=== PATIENT | female | born 1985 | race Caucasian/White ===

== ENCOUNTER 2016-08-16 11:20 | Inpatient (IN) | payer MEDICAID ==
[~2016-08-16] VITALS: Ht 157.5 cm; Wt 59.0 kg
--- NOTE | 2016-08-16 14:25 | NUR ---
RECEIVED TO ROOM 2205 AT THIS TIME FROM THE DOCTOR'S OFFICE VIA WHEELCHAIR. PT ALERT AND ORIENTED AND AMBULATES WITHOUT ASSISTANCE. MOTHER AT BEDSIDE. IV TO RIGHT AC PATENT AND SITED BY IMAGING. ASSESSMENT AND HISTORY OBTAINED. ORIENTED TO ROOM. CALL LIGHT IN REACH, WILL CONTINUE WITH PLAN OF CARE.
[2016-08-16] MEDS ORDERED: TRINESSA1 TAB PO (14:34)
[2016-08-16 14:36] VITALS: BP 122/101
--- NOTE | 2016-08-16 14:58 | NUR ---
PRN MORPHINE AND ZOFRAN ADMINISTERED PER ORDER FOR NAUSEA AND PAIN /10.
[2016-08-16 15:26] LABS: BASOPHILS 0.3 % (0.0-2.0); EOSINOPHILS 0.2 % (0-7); HEMATOCRIT 35.5 % (36.0-48.0); HEMOGLOBIN 11.2 g/dL (12-16); IMMATURE GRANULOCYTES 0.5 % (0-5); LYMPHOCYTES 13.7 % (15-50); MCHC 31.5 g/dL (31.0-37.0); MCV 76.2 fL (80.0-100.0); MEAN PLATELET VOLUME 8.1 fL (7.4-10.4); MONOCYTES 16.4 % (2-11); NEUTROPHILS 68.9 % (40-80); PLATELET COUNT 392 10x3/uL (130-400); RBC 4.66 10x6/uL (4.00-5.40); RDW 15.2 % (11.5-14.5); WBC 10.9 10x3/uL (4.8-10.8)
[2016-08-16 15:57] LABS: ALKALINE PHOSPHATASE 95 U/L (46-116); ALT (SGPT) 13 U/L (10-68); BILIRUBIN - TOTAL 0.52 mg/dL (0.2-1.3); CALC OSMOLALITY 271 mosm/kg (275-300); CALCIUM 8.6 mg/dL (8.5-10.1); CARBON DIOXIDE 24.8 mmol/L (21.0-32.0); CHLORIDE - SERUM 98 mmol/L (98-107); CREATININE - SERUM 0.7 mg/dL (0.6-1.3); GLUCOSE 113 mg/dL (74-106); MAGNESIUM - SERUM 1.6 mg/dL (1.8-2.4); PHOSPHOROUS 3.4 mg/dL (2.5-4.9); POTASSIUM - SERUM 3.3 mmol/L (3.5-5.1); PROTEIN - SERUM 6.5 g/dL (6.4-8.2); SODIUM 137 mmol/L (136-145); UREA NITROGEN 5 mg/dL (7-18); eGFR NON AFRICAN AMERICAN > 90 mL/min (90-120)
--- NOTE | 2016-08-16 17:06 | NUR ---
SCHEDULED ANTIBIOTIC STARTED AT THIS TIME. INITIATED ELECTROLYTE PROTOCOL FOR MAGNESIUM OF 1.6. PAIN LEVEL 3/10 DENIES NAUSEA AT THIS TIME. CALL LIGHT IN REACH, WILL CONTINUE WITH PLAN OF CARE.
[2016-08-16 17:27] VITALS: BP 122/101; BMI 23.8
--- NOTE | 2016-08-16 17:54 | NUR ---
DCP: Discharge Planning Patient Name: CAT BROWN Admission Status: Elective Accout number: [id number] Admission Date: 08-16-2016 : 1985 Admission Diagnosis: Attending: LEE Current LOS: 1 Anticipated DC Date: Planned Disposition: Home or Self Care Primary [place]: [place] [employer] Discharge Planning Comments: CM met with patient to discuss discharge planning/needs. The patient resides at home with her spouse and children. They live in a single story home with 5 steps leading to the front door. She states her home is safe to return to. Her primary caregiver will be her spouse "Nick" ([phone]). He will also be her transportation home. She denies the need for HH/DME at this time. CM will continue to follow and assist with discharge planning as needed. Six Sigma Black Trainer: Naye Asher
--- NOTE | 2016-08-16 18:35 | NUR ---
TEMPERATURE 102.[address] WEATHERS ON THE FLOOR. INFORMED HER OF FEVER. STATED SHE WOULD WRITE FOR TYLENOL.
[2016-08-16 19:01] LABS: HCG SERUM NEGATIVE (NEGATIVE)
[2016-08-16 21:00] VITALS: BP 124/62
[2016-08-17 01:00] VITALS: BP 109/60
[2016-08-17 05:00] VITALS: BP 119/75
[2016-08-17 05:29] LABS: BASOPHILS 0.1 % (0.0-2.0); EOSINOPHILS 0.1 % (0-7); HEMATOCRIT 34.5 % (36.0-48.0); HEMOGLOBIN 10.9 g/dL (12-16); IMMATURE GRANULOCYTES 0.5 % (0-5); LYMPHOCYTES 12.2 % (15-50); MCH 24.1 pg (26.0-34.0); MCHC 31.6 g/dL (31.0-37.0); MCV 76.2 fL (80.0-100.0); MEAN PLATELET VOLUME 8.4 fL (7.4-10.4); MONOCYTES 19.9 % (2-11); NEUTROPHILS 67.2 % (40-80); PLATELET COUNT 435 10x3/uL (130-400); RBC 4.53 10x6/uL (4.00-5.40); RDW 15.3 % (11.5-14.5); WBC 8.8 10x3/uL (4.8-10.8)
[2016-08-17 05:51] LABS: ALBUMIN 2.6 g/dL (3.4-5.0); ALKALINE PHOSPHATASE 79 U/L (46-116); ALT (SGPT) 11 U/L (10-68); BILIRUBIN - TOTAL 0.55 mg/dL (0.2-1.3); CALC OSMOLALITY 268 mosm/kg (275-300); CALCIUM 8.1 mg/dL (8.5-10.1); CHLORIDE - SERUM 99 mmol/L (98-107); CREATININE - SERUM 0.7 mg/dL (0.6-1.3); GLUCOSE 138 mg/dL (74-106); POTASSIUM - SERUM 3.5 mmol/L (3.5-5.1); PROTEIN - SERUM 6.6 g/dL (6.4-8.2); SODIUM 135 mmol/L (136-145); UREA NITROGEN 4 mg/dL (7-18); eGFR NON AFRICAN AMERICAN > 90 mL/min (90-120)
[2016-08-17 06:01] LABS: LIPASE 44 U/L (73-393); PHOSPHOROUS 2.3 mg/dL (2.5-4.9)
[2016-08-17 06:29] LABS: ERYTHROCYTE SEDIMENTATION RATE 32 mm/hr (0-20)
--- NOTE | 2016-08-17 07:00 | NUR ---
PT REC'D FROM [facility]. RESTING IN BED COMPLAINING OF 9/10 R ARM PAIN. PT STATES, "IT JUST CAME ON ALL OF A SUDDEN." K RUNNING AT THIS TIME. BAG EMPTY SO INFUSION STOPPED. STATED I WOULD ADMINISTERED PRN PAIN MEDICATION AND PRN NAUSEA MED. BED LOW, CALL LIGHT IN REACH, WILL REASSESS.
--- NOTE | 2016-08-17 08:05 | NUR ---
PRN MORPHINE ADMINISTERED PER PT COMPLAINTS OF BURNING/SHARP R ARM PAIN. PRN ZOFRAN ADMINISTERED PER COMPLAINTS OF NAUSEA WELL. AFTER PUSH PT STATED SHE WAS ALREADY FEELING A LITTLE BETTER. WILL REASSESS.
[2016-08-17 08:19] VITALS: BP 125/78
--- NOTE | 2016-08-17 10:00 | NUR ---
PATIENT IN BED WITH IV INTACT. NO COMPLAINTS AT THIS TIME. CALL LIGHT WITHIN REACH.
[2016-08-17 12:23] VITALS: BP 116/75
--- NOTE | 2016-08-17 12:42 | NUR ---
PRN MORPHINE GIVEN PER PT COMPLAINTS OF 9/10 ABD PAIN. EXPLAINED TO PT THAT COLONOSCOPY IS SCHEDULED FOR 0900 08/18/16 AND THAT WE WOULD SIGN AND GO OVER THE CONSENTS LATER. PT STATES SHE UNDERSTANDS AND HAS NO QUESTIONS AT THIS TIME.
[2016-08-17 13:10] VITALS: Ht 157.5 cm; Wt 59.0 kg
--- NOTE | 2016-08-17 14:39 | NUR ---
CONSENTS FOR COLONOSCOPY SIGNED AT THIS TIME. NO QUESTIONS OR CONCERNS VOICED AT THIS TIME. GOLYTLE STARTED. EXPLAINED TO PT MUCH POSSIBLE. IF UNABLE TO OR CAN'T KEEP IT DOWN TO JUST LET ME KNOW, BUT TO CONTINUE TO TRY TO DRINK IT IF ABLE. NO QUESTIONS OR CONCERNS VOICED AT THIS TIME. BED LOW, CALL LIGHT IN REACH, DENIES NEEDS.
[2016-08-17 15:41] VITALS: BP 118/79
--- NOTE | 2016-08-17 19:00 | NUR ---
PATIENT IN BED WATCHING TV. HOB 30 DEGREES. AAOX4. RR EVEN AND UNLABORED. 0 S/S OF DISTRESS. STATES PAIN IS A 4/10. IV TO RIGHT AC PATENT WITH NO REDNESS OR SWELLING. PATIENT STATES SHE CANNOT DRINK GO LYTELY BECAUSE IT IS MAKING HER SICK. WILL NOTIFY
--- NOTE | 2016-08-17 20:30 | NUR ---
SPOKE WITH DR. WEATHERS. GAVE PATIENT 2 DULCOLAX AND MAG CITRATE PER TELEPHONE ORDER. ZOFRAN GIVEN FOR NAUSEA AND MORPHINE GIVEN FOR PAIN. WILL REASSESS.
[2016-08-17 21:00] VITALS: BP 124/68
[2016-08-18] VITALS (9 sets, daily range): BP systolic 106–124; BP diastolic 57–81
--- NOTE | 2016-08-18 01:35 | NUR ---
PATIENT SLEEPING WITH NO DISTRESS NOTED. WAS ABLE TO DRINK ABOUT 150ML OF MAG CITRATE.
[2016-08-18 05:10] LABS: BASOPHILS 0.1 % (0.0-2.0); EOSINOPHILS 0.8 % (0-7); HEMATOCRIT 33.2 % (36.0-48.0); HEMOGLOBIN 10.2 g/dL (12-16); IMMATURE GRANULOCYTES 0.7 % (0-5); LYMPHOCYTES 18.4 % (15-50); MCH 23.4 pg (26.0-34.0); MCHC 30.7 g/dL (31.0-37.0); MCV 76.1 fL (80.0-100.0); MEAN PLATELET VOLUME 8.3 fL (7.4-10.4); MONOCYTES 16.3 % (2-11); NEUTROPHILS 63.7 % (40-80); PLATELET COUNT 431 10x3/uL (130-400); RBC 4.36 10x6/uL (4.00-5.40); RDW 15.1 % (11.5-14.5); WBC 8.8 10x3/uL (4.8-10.8)
[2016-08-18 05:57] LABS: ALBUMIN 2.3 g/dL (3.4-5.0); ALKALINE PHOSPHATASE 66 U/L (46-116); ALT (SGPT) 10 U/L (10-68); BILIRUBIN - TOTAL 0.37 mg/dL (0.2-1.3); CALC OSMOLALITY 272 mosm/kg (275-300); CALCIUM 7.5 mg/dL (8.5-10.1); CARBON DIOXIDE 27.6 mmol/L (21.0-32.0); CHLORIDE - SERUM 101 mmol/L (98-107); CREATININE - SERUM 0.6 mg/dL (0.6-1.3); GLUCOSE 126 mg/dL (74-106); MAGNESIUM - SERUM 2.1 mg/dL (1.8-2.4); PHOSPHOROUS 1.8 mg/dL (2.5-4.9); POTASSIUM - SERUM 3.2 mmol/L (3.5-5.1); PROTEIN - SERUM 6.1 g/dL (6.4-8.2); SODIUM 137 mmol/L (136-145); UREA NITROGEN 4 mg/dL (7-18); eGFR NON AFRICAN AMERICAN > 90 mL/min (90-120)
--- NOTE | 2016-08-18 07:00 | NUR ---
PT REC'D FROM [facility]. RESTING IN BED WITH EYES CLOSED. RESP EVEN AND UNLABORED. NO SIGNS OF DISTRESS. BED LOW, CALL LIGHT IN REACH, WILL CPOC.
--- NOTE | 2016-08-18 07:20 | NUR ---
PATIENT IN BED WITH EYES CLOSED. NO COMPLAINTS OR SIGNS OF DISTRESS. IV INTACT. CALL LIGHT WITHIN REACH.
--- NOTE | 2016-08-18 08:28 | NUR ---
MORNING MEDS PASSED AT THIS TIME. ASKED PT IF SHE WAS READY TO DO THE ENEMAS. PT STARTED CRYING AND VERBALIZED SHE WAS UPSET AND DIDN'T WANT TO, BUT WANTED TO KNOW WHAT IT WAS FOR ULTIMATELY. EXPLAINED TO PT THAT IT WAS TO HELP CLEAN OUT HER BOWELS SO THAT THE DOCTOR COULD HAVE A BETTER VEIW AND DON'T MISS ANYTHING. TOLD PT I WOULD GIVE HER A MINUTE TO DECIDE.
--- NOTE | 2016-08-18 09:24 | NUR ---
WARM TAP WATER ENEMA INSTILLED. 800CC'S INSTILLED. PT VOIDED LARGE AMOUNT OF YELLOW/GREEN STOOL. ASSISTED BACK TO BED. BED LOW, CALL LIGHT IN REACH, AWAITING CALL TO PREOP.
--- NOTE | 2016-08-18 12:33 | NUR ---
PT PREOP'D AND READY FOR COLONOSCOPY.
--- NOTE | 2016-08-18 19:25 | NUR ---
RECIEVED SHIFT REPORT. PT IS LYING IN BED. ALERT AND ORIENTED AND ABLE TO VERBALIZE NEEDS. IV IS PATENT AND FLUIDS ARE RUNNING PER ORDER. PT IS AMBULATORY BUT WAS INSTRUCTED TO CALL FOR ANY ASSISTANCE NEEDED. PT STATES PAIN IS 6/10. NO NEEDS ARE VERBALIZED AT THIS TIME. WILL CONTINUE TO MONITOR. SIDE RAILS ARE UP X 2. BED IS IN LOWEST POSITION. CALL LIGHT IS WITHIN REACH.
--- NOTE | 2016-08-18 20:46 | OP ---
PATIENT NAME: CAT MCKEON MEDICAL RECORD: [id number] :87 LOCATION:D[id number] ADMISSION DATE:08/16/16 SURGEON: HARIS WEATHERS MD DATE OF OPERATION: 08/18/2016 PROCEDURE: Colonoscopy with ileoscopy and biopsy. ATTENDING PHYSICIAN: Tori Bustillo MD. INDICATIONS: Ms. Mckeon is a very pleasant 31-year-old woman who was admitted to [facility] secondary to recurrent diarrhea with intermittent rectal bleeding. She had a CT scan of the abdomen and pelvis that showed pancolitis and ileitis. Her stools for white blood cells, culture and sensitivity and CDT were negative. Stool for calprotectin is pending. She presents for inpatient colonoscopy. PREMEDICATIONS: Total IV anesthesia (propofol 400 mg). INSTRUMENT: ElasticBox video colonoscope. PROCEDURE AND FINDINGS: After receiving informed consent, Ms. Mckeon was placed in left lateral decubitus position, sedated as per anesthesia. After achieving an adequate level of sedation, digital rectal exam was performed that showed no external hemorrhoidal tags, fissures or fistulas, normal sphincter tone, no palpable rectal masses. Colonoscope was introduced per rectally and advanced to the cecum. The cecum and IC valve were identified. The terminal ileum was intubated and the distal small bowel mucosa was notable for mild diffuse erythema and biopsies were obtained. There were no ulcers seen in the terminal ileum. As the colonoscope was withdrawn, careful inspection was made of the marquez of the colon. Overall, the colonic mucosa was moderately to severely erythematous with scattered cratered ulcers throughout the bowel including the rectum. Random biopsies obtained throughout the colon. A fair prep was present. Withdrawal time was 7 minutes. Ms. Mckeon tolerated the procedure well, no immediate complications. ASSESSMENT: Moderate to severe diffuse colonic mucosa erythema with ulcers suggestive of ulcerative colitis with backwash ileitis. RECOMMENDATIONS: 1. Follow up histopathology. 2. Avoid nonsteroidal anti-inflammatory drugs. 3. Trial of sulfasalazine 500 mg 2 p.o. 4 times a day. 4. Solu-Medrol 40 mg IV q.12 hours. 5. Full liquid diet. 6. We will check IBD serology. TRANSINT:[id number] Voice Confirmation ID: [id number] DOCUMENT ID: [id number] OPERATIVE REPORT [id number] MCKEON,HARIS KING MD at 2046 CC: [id number] DICTATION DATE: 08/18/16 1424 ULTRASONOGRAPHER: 08/18/16 2007 ADM IN [facility] [address] [place] [address]
--- NOTE | 2016-08-18 21:01 | NUR ---
SHIFT ASSESSMENT COMPLETED. NIGHT MEDS GIVEN WITH NO PROBLEMS. NO NEEDS ARE VOICED. WILL MONITOR. SIDE RAILS X 2. BED LOW. CALL LIGHT IN REACH.
[2016-08-19] VITALS: BP 111/65
[2016-08-19 04:00] VITALS: BP 114/70
[2016-08-19 04:58] LABS: BASOPHILS 0.2 % (0.0-2.0); EOSINOPHILS 2.6 % (0-7); HEMATOCRIT 31.7 % (36.0-48.0); HEMOGLOBIN 9.7 g/dL (12-16); IMMATURE GRANULOCYTES 0.6 % (0-5); LYMPHOCYTES 34.8 % (15-50); MCH 23.5 pg (26.0-34.0); MCHC 30.6 g/dL (31.0-37.0); MCV 76.8 fL (80.0-100.0); MEAN PLATELET VOLUME 8.3 fL (7.4-10.4); MONOCYTES 12.7 % (2-11); NEUTROPHILS 49.1 % (40-80); PLATELET COUNT 394 10x3/uL (130-400); RBC 4.13 10x6/uL (4.00-5.40); RDW 15.1 % (11.5-14.5); WBC 6.6 10x3/uL (4.8-10.8)
[2016-08-19 05:33] LABS: ALBUMIN 2.2 g/dL (3.4-5.0); ALKALINE PHOSPHATASE 62 U/L (46-116); ALT (SGPT) 10 U/L (10-68); BILIRUBIN - TOTAL 0.32 mg/dL (0.2-1.3); CALC OSMOLALITY 273 mosm/kg (275-300); CALCIUM 7.9 mg/dL (8.5-10.1); CARBON DIOXIDE 25.3 mmol/L (21.0-32.0); CHLORIDE - SERUM 104 mmol/L (98-107); CREATININE - SERUM 0.5 mg/dL (0.6-1.3); GLUCOSE 116 mg/dL (74-106); MAGNESIUM - SERUM 1.8 mg/dL (1.8-2.4); PROTEIN - SERUM 5.8 g/dL (6.4-8.2); SODIUM 138 mmol/L (136-145); UREA NITROGEN 4 mg/dL (7-18); eGFR NON AFRICAN AMERICAN > 90 mL/min (90-120)
[2016-08-19 05:47] LABS: POTASSIUM - SERUM 2.8 mmol/L (3.5-5.1)
--- NOTE | 2016-08-19 08:00 | NUR ---
AWAKE AND ALERT AT THIS TIME. PT DENIES NEEDS. IV INFUSING PRESCRIBED FLUIDS AT THIS TIME. RESPIRATIONS EVEN AND NON LABORED. CALL LIGHT IN REACH, WILL CONTINUE WITH PLAN OF CARE.
--- NOTE | 2016-08-19 08:00 | NUR ---
PT ASSESSMENT COMPLETE. ALL ADLS PER STAFF ASSIST NEEDED PT WITH PIV PATENT TO KCL RIDER AT THIS TIME AT 50 UNABLE TO TOLERATE IT ANY FASTER WILL FINISH THIS RIDER AND THEN GIVE PO DOSES TO FINISH PROTOCOL.
[2016-08-19 08:16] VITALS: BP 117/73
[2016-08-19 12:08] VITALS: BP 102/61
--- NOTE | 2016-08-19 13:17 | NUR ---
PT AWAKE AND ALERT NO ACUTE DISTRESS NOTED VOICES ALL NEEDS TO STAFF NEEDED CALL LIGHT IN REACH SIDE RAILS UP X 2
--- NOTE | 2016-08-19 14:05 | NUR ---
NO ACUTE DISTRESS NOTED COMPLAINS OF BURNING PAIN TO ABDOMEN AFTER CRANBERYY JUICE AND KCL LIQUID. WILL RECHECK K+ AND RECORD RESULTS.
[2016-08-19 16:04] VITALS: BP 107/56
--- NOTE | 2016-08-19 17:57 | NUR ---
PIV RESITED TO LEFT FORARM 22 GA X 1 STICK K+ DRAWN FOR LAB AT THIS TIME WELL WILL MONITOR FOR RESULTS.
[2016-08-19 19:00] VITALS: BP 113/67
--- NOTE | 2016-08-19 19:40 | NUR ---
RECIEVED SHIFT REPORT. PT IS LYING IN BED. ALERT AND ORIENTED AND ABLE TO VERBALIZE NEEDS. IV IS PATENT AND FLUIDS ARE RUNNING PER ORDER. PT IS AMBULATORY BUT WAS INSTRUCTED TO CALL FOR ANY ASSISTANCE NEEDED. PT STATES PAIN IS 3/10. NO NEEDS ARE VERBALIZED AT THIS TIME. WILL CONTINUE TO MONITOR. SIDE RAILS ARE UP X 2. BED IS IN LOWEST POSITION. CALL LIGHT IS WITHIN REACH.
--- NOTE | 2016-08-19 21:51 | NUR ---
SHIFT ASSESSMENT COMPLETED. NIGHT MEDS GIVEN PER LEAK PATCHER WITH SUPERVISION. NO NEEDS ARE VOICED. WILL MONITOR. SIDE RAILS X 2. BED LOW. CALL LIGHT IN REACH.
[2016-08-20 03:42] VITALS: BP 124/69
[2016-08-20 04:00] VITALS: BP 108/63
[2016-08-20 06:43] LABS: BASOPHILS 0.1 % (0.0-2.0); EOSINOPHILS 0 % (0-7); HEMATOCRIT 32.3 % (36.0-48.0); IMMATURE GRANULOCYTES 1.1 % (0-5); LYMPHOCYTES 19.9 % (15-50); MCH 23.5 pg (26.0-34.0); MCV 75.8 fL (80.0-100.0); MEAN PLATELET VOLUME 9.5 fL (7.4-10.4); MONOCYTES 10.1 % (2-11); NEUTROPHILS 68.8 % (40-80); PLATELET COUNT 334 10x3/uL (130-400); RBC 4.26 10x6/uL (4.00-5.40); RDW 15.1 % (11.5-14.5); WBC 7.6 10x3/uL (4.8-10.8)
[2016-08-20 07:13] LABS: ALBUMIN 2.2 g/dL (3.4-5.0); ALKALINE PHOSPHATASE 60 U/L (46-116); CALC OSMOLALITY 273 mosm/kg (275-300); CALCIUM 8.2 mg/dL (8.5-10.1); CARBON DIOXIDE 21.1 mmol/L (21.0-32.0); CHLORIDE - SERUM 106 mmol/L (98-107); GLUCOSE 116 mg/dL (74-106); MAGNESIUM - SERUM 1.8 mg/dL (1.8-2.4); PROTEIN - SERUM 5.8 g/dL (6.4-8.2); SODIUM 138 mmol/L (136-145); UREA NITROGEN 3 mg/dL (7-18)
[2016-08-20 07:16] LABS: ALT (SGPT) 15 U/L (10-68); CREATININE - SERUM 0.3 mg/dL (0.6-1.3); PHOSPHOROUS 3.2 mg/dL (2.5-4.9); eGFR NON AFRICAN AMERICAN > 90 mL/min (90-120)
[2016-08-20 07:17] LABS: POTASSIUM - SERUM 3.8 mmol/L (3.5-5.1)
--- NOTE | 2016-08-20 08:30 | NUR ---
LYING IN BED,WITHOUT DISTRESS.CALL LIGHT IN REACH
[2016-08-20 08:39] VITALS: BP 123/78
[2016-08-20 12:26] VITALS: BP 112/67
[2016-08-20 16:58] VITALS: BP 112/70
--- NOTE | 2016-08-20 18:00 | NUR ---
PT WAS ASSESSED THIS AM AND FOUND TO BE ALERT AND ORINETED X 3 LUNGS CLEAR BILATERALLY K+ 3.8 THIS AM UP ADLIB IN ROOM HAD LOCAL REACTION TO [facility] PER DR WEATHERS PT WITH ORDERS TO DC IV MEDS AFTER STOPPED REACTION SUBSIDED
[2016-08-20 19:00] VITALS: BP 124/97
--- NOTE | 2016-08-20 19:27 | NUR ---
PATIENT AWAKE, ALERT AND ORIENTED X'S 4. RESPIRATIONS ARE EVEN AND UNLABORED ON ROOM AIR. NO SIGNS OF DISTRESS NOTED. HOB 45 DEGREES.
--- NOTE | 2016-08-20 19:35 | NUR ---
RECIEVED SHIFT REPORT. PT IS LYING IN BED. ALERT AND ORIENTED AND ABLE TO VERBALIZE NEEDS. NO IV ACCESS AT THIS TIME. PT IS AMBULATORY BUT WAS INSTRUCTED TO CALL FOR ANY ASSISTANCE NEEDED. PT DENIES ANY PAIN AT THIS TIME. NO NEEDS ARE VERBALIZED AT THIS TIME. WILL CONTINUE TO MONITOR. SIDE RAILS ARE UP X 2. BED IS IN LOWEST POSITION. CALL LIGHT IS WITHIN REACH.
--- NOTE | 2016-08-20 21:14 | NUR ---
SHIFT ASSESSMENT COMPLETED. NIGHT MEDS GIVEN WITH NO PROBLEMS. NO NEEDS ARE VOICED. WILL MONITOR. SIDE RAILS X 2. BED LOW. CALL LIGHT IN REACH.
[2016-08-21 03:09] LABS: OVA + PARASITE EXAM Final report (())
[2016-08-21 04:00] VITALS: BP 123/84
[2016-08-21 05:29] LABS: BASOPHILS 0.1 % (0.0-2.0); EOSINOPHILS 0.2 % (0-7); HEMATOCRIT 32.1 % (36.0-48.0); HEMOGLOBIN 9.8 g/dL (12-16); IMMATURE GRANULOCYTES 2.5 % (0-5); LYMPHOCYTES 32.9 % (15-50); MCH 23.1 pg (26.0-34.0); MCHC 30.5 g/dL (31.0-37.0); MCV 75.5 fL (80.0-100.0); MEAN PLATELET VOLUME 8.3 fL (7.4-10.4); MONOCYTES 10.3 % (2-11); RBC 4.25 10x6/uL (4.00-5.40); RDW 15.3 % (11.5-14.5)
[2016-08-21 05:40] LABS: PLATELET COUNT 458 10x3/uL (130-400); WBC 10.5 10x3/uL (4.8-10.8)
[2016-08-21 05:48] LABS: ALBUMIN 2.5 g/dL (3.4-5.0); ALKALINE PHOSPHATASE 58 U/L (46-116); ALT (SGPT) 14 U/L (10-68); BILIRUBIN - TOTAL 0.24 mg/dL (0.2-1.3); CALCIUM 8.6 mg/dL (8.5-10.1); CHLORIDE - SERUM 106 mmol/L (98-107); GLUCOSE 109 mg/dL (74-106); MAGNESIUM - SERUM 1.7 mg/dL (1.8-2.4); POTASSIUM - SERUM 3.3 mmol/L (3.5-5.1); PROTEIN - SERUM 6.1 g/dL (6.4-8.2); SODIUM 141 mmol/L (136-145)
[2016-08-21 05:51] LABS: CALC OSMOLALITY 279 mosm/kg (275-300); CARBON DIOXIDE 27.3 mmol/L (21.0-32.0); CREATININE - SERUM 0.6 mg/dL (0.6-1.3); PHOSPHOROUS 4.6 mg/dL (2.5-4.9); UREA NITROGEN 7 mg/dL (7-18); eGFR NON AFRICAN AMERICAN > 90 mL/min (90-120)
--- NOTE | 2016-08-21 07:15 | NUR ---
REPORT RECEIVED FROM MEDIA PLANNER NURSE. CALL LIGHT IN REACH.
[2016-08-21 07:57] VITALS: BP 124/78
--- NOTE | 2016-08-21 09:59 | NUR ---
ASSESSMENT COMPLETED. AM MEDS ADMINISTERED. OFFERD SCDs AND EXPLAINED IMPORTANCE BUT PATIENT REFUSED. CALL LIGHT IN REACH. WILL CONTINUE WITH PLAN OF CARE.
--- NOTE | 2016-08-21 11:25 | NUR ---
PT AMBULATING IN ROOM INDEPENDENTLY AT THIS TIME. PROVIDED WITH CUP OF ICE AT HER REQUEST. HOPEFUL THAT SHE WILL D/C HOME TODAY. DENIES NEEDS, RESPIRATIONS EVEN AND NON LABORED. CALL LIGHT IN REACH, WILL CONTINUE WITH PLAN OF CARE.
[2016-08-21] MEDS ORDERED: AZULFIDINE500 MG PO (11:58)
[2016-08-21] MEDS ORDERED: PEPCID20 MG PO (11:58)
[2016-08-21] MEDS ORDERED: FLORAJEN3 CAPS460 MG PO (11:58)
[2016-08-21] MEDS ORDERED: PREDNISONE20 MG PO (11:58)
[2016-08-21] MEDS ORDERED: ZOFRAN4 MG PO (11:58)
[2016-08-21 12:08] VITALS: BP 124/76
--- NOTE | 2016-08-21 13:41 | NUR ---
NOON MEDS ADMINISTERED. DC INSTRUCTIONS EXPLAINED TO PATIENT. VERBALIZED UNDERSTANDING.
--- NOTE | 2016-08-21 13:47 | NUR ---
AMBULATED TO VEHICLE WITH FAMILY. REFUSED WC.
--- NOTE | 2016-08-21 14:41 | NUR ---
LATE ENTRY: PATIENT DISCHARGED HOME TODAY BY PRIVATE CAR-NO NEEDS AT DISCHARGE
== END 2016-08-21 13:47 | disposition home or self-care (01) | DRG 387 ==
LOC: D.CT 11:20 → D.SDCHOLD 13:43 → D.MS 13:43 → D.CT 15:30 → D.MS 08-21 13:47
PROVIDERS: Family Medicine; Internal Medicine Gastroenterology; ADMIT Family Medicine
PROC: 0DBP8ZX Excision of Rectum, Via Natural or Artificial Opening Endoscopic, Diagnostic (ICD-10-PCS; 2016-08-18)
PROC: 0DBE8ZX Excision of Large Intestine, Via Natural or Artificial Opening Endoscopic, Diagnostic (ICD-10-PCS; principal; 2016-08-18 13:00)
DX: K51.90 Ulcerative colitis, unspecified, without complications (principal); K51.00 Ulcerative (chronic) pancolitis without complications; E87.6 Hypokalemia

== ENCOUNTER → 2018-08-05 16:17 | Outpatient (CLI) | payer MEDICAID ==
[2016-08-17 13:10] VITALS: BMI 23.8
[~2018-08-05 16:17] MED LIST: AZULFIDINE500 MG PO; FLORAJEN3 CAPS460 MG PO; PEPCID20 MG PO; PREDNISONE20 MG PO; TRINESSA1 TAB PO; ZOFRAN4 MG PO
[2018-08-05 16:56] LABS: BASOPHILS 0.4 % (0-2); EOSINOPHILS 2.2 % (0-7); HEMATOCRIT 32.6 % (36.0-48.0); HEMOGLOBIN 10.3 g/dL (12-16); IMMATURE GRANULOCYTES 0.2 % (0-5); LYMPHOCYTES 30.6 % (15-50); MCH 25.3 pg (26.0-34.0); MCHC 31.6 g/dL (31.0-37.0); MCV 80.1 fL (80.0-100.0); MONOCYTES 8.6 % (2-11); RBC 4.07 10x6/uL (4.00-5.40); RDW 15.6 % (11.5-14.5); WBC 10.9 10x3/uL (4.8-10.8)
[2018-08-05 16:57] LABS: PLATELET COUNT 335 10x3/uL (130-400)
[2018-08-05 17:27] LABS: ALBUMIN 3.5 g/dL (3.4-5.0); BILIRUBIN - DIRECT 0.11 mg/dL (0.00-0.30); BILIRUBIN - INDIRECT 0.16 mg/dL (0.00-1.00); BILIRUBIN - TOTAL 0.27 mg/dL (0.2-1.3); PROTEIN - SERUM 7.1 g/dL (6.4-8.2)
[2018-08-07 10:22] LABS: HEPATITIS C ANTIBODY <0.1 (0.0-0.9)
== END | disposition home or self-care (01) ==
LOC: D.LAB 16:17
PROVIDERS: Internal Medicine Gastroenterology
DX: K51.90 Ulcerative colitis, unspecified, without complications (principal); R12 Heartburn

== ENCOUNTER 2019-02-02 18:43 | Emergency (ER) | payer MEDICAID ==
[~2019-02-02] VITALS: Ht 157.5 cm; Wt 55.0 kg
[2019-02-02 18:56] VITALS: Ht 157.5 cm; Wt 55.0 kg
[2019-02-02] MEDS ORDERED: CELEXA40 MG PO (18:59)
[2019-02-02 19:15] LABS: BASOPHILS 0.3 % (0-2); EOSINOPHILS 1.4 % (0-7); HEMATOCRIT 32.6 % (36.0-48.0); IMMATURE GRANULOCYTES 0.4 % (0-5); LYMPHOCYTES 27.3 % (15-50); MCH 22.1 pg (26.0-34.0); MCHC 30.7 g/dL (31.0-37.0); MCV 72.1 fL (80.0-100.0); MEAN PLATELET VOLUME 7.6 fL (7.4-10.4); MONOCYTES 7.4 % (2-11); NEUTROPHILS 63.2 % (40-80); RBC 4.52 10x6/uL (4.00-5.40); RDW 15.4 % (11.5-14.5); WBC 10.5 10x3/uL (4.8-10.8)
[2019-02-02 19:40] LABS: PLATELET COUNT 441 10x3/uL (130-400)
[2019-02-02 19:42] LABS: ALBUMIN 2.8 g/dL (3.4-5.0); ALKALINE PHOSPHATASE 125 U/L (46-116); ALT (SGPT) 9 U/L (10-68); BILIRUBIN - TOTAL 0.27 mg/dL (0.2-1.3); CALC OSMOLALITY 269 mosm/kg (275-300); CALCIUM 8.4 mg/dL (8.5-10.1); CARBON DIOXIDE 28.5 mmol/L (21.0-32.0); CHLORIDE - SERUM 101 mmol/L (98-107); CREATININE - SERUM 0.8 mg/dL (0.6-1.3); GLUCOSE 103 mg/dL (74-106); POTASSIUM - SERUM 3.4 mmol/L (3.5-5.1); PROTEIN - SERUM 7.2 g/dL (6.4-8.2); SODIUM 136 mmol/L (136-145); UREA NITROGEN 6 mg/dL (7-18); eGFR NON AFRICAN AMERICAN 89 mL/min (90-120)
[2019-02-02 19:45] LABS: AMYLASE - SERUM 25 U/L (25-115); LIPASE 51 U/L (73-393)
[2019-02-02 19:48] LABS: TROPONIN-I < 0.017 ng/mL (0.000-0.060)
[2019-02-02 19:57] LABS: HCG SERUM NEGATIVE (NEGATIVE)
[2019-02-02 20:05] LABS: APPEARANCE HAZY (CLEAR); BILIRUBIN NEGATIVE (NEGATIVE); COLOR YELLOW (YELLOW); EPITHELIAL CELLS 0-5 /hpf (0-5); GLUCOSE NEGATIVE (NEGATIVE); KETONE MODERATE mg/dL (NEGATIVE); NITRITE NEGATIVE (NEGATIVE); PROTEIN 1+ mg/dL (NEGATIVE); RED CELLS - URINE 25-50 /hpf (0-5); UROBILINOGEN NORMAL (NORMAL); WHITE CELLS - URINE 0-5 /hpf (0-5)
[2019-02-02 20:06] LABS: BACTERIA MODERATE /hpf (NONE SEEN)
[2019-02-02] MEDS ORDERED: FLAGYL500 MG PO (21:17)
[2019-02-02] MEDS ORDERED: PREDNISONE20 MG PO (21:17)
[2019-02-02 21:43] VITALS: BP 110/71
== END 2019-02-02 21:41 | disposition home or self-care (01) ==
LOC: D.ER 18:43
PROVIDERS: Family Medicine
DX: K50.90 Crohn's disease, unspecified, without complications (principal); D64.9 Anemia, unspecified; E86.0 Dehydration

== ENCOUNTER → 2019-02-09 12:21 | Outpatient (CLI) | payer MEDICAID ==
[2019-02-02 18:56] VITALS: BMI 22.2
[~2019-02-09 12:21] MED LIST changes: +CELEXA40 MG PO; +FLAGYL500 MG PO
[2019-02-09 12:42] LABS: BASOPHILS 0.2 % (0-2); EOSINOPHILS 3.9 % (0-7); HEMATOCRIT 34.3 % (36.0-48.0); HEMOGLOBIN 10.5 g/dL (12-16); IMMATURE GRANULOCYTES 0.5 % (0-5); LYMPHOCYTES 30.4 % (15-50); MCH 22.2 pg (26.0-34.0); MCHC 30.6 g/dL (31.0-37.0); MCV 72.4 fL (80.0-100.0); MEAN PLATELET VOLUME 7.7 fL (7.4-10.4); MONOCYTES 5.9 % (2-11); NEUTROPHILS 59.1 % (40-80); PLATELET COUNT 455 10x3/uL (130-400); RBC 4.74 10x6/uL (4.00-5.40); RDW 16.2 % (11.5-14.5); WBC 16.1 10x3/uL (4.8-10.8)
[2019-02-09 13:11] LABS: ALKALINE PHOSPHATASE 101 U/L (46-116); ALT (SGPT) 10 U/L (10-68); BILIRUBIN - TOTAL 0.19 mg/dL (0.2-1.3); CALC OSMOLALITY 278 mosm/kg (275-300); CALCIUM 8.3 mg/dL (8.5-10.1); CARBON DIOXIDE 29.1 mmol/L (21.0-32.0); CHLORIDE - SERUM 104 mmol/L (98-107); CREATININE - SERUM 0.7 mg/dL (0.6-1.3); GLUCOSE 86 mg/dL (74-106); POTASSIUM - SERUM 3.7 mmol/L (3.5-5.1); PROTEIN - SERUM 6.7 g/dL (6.4-8.2); SODIUM 141 mmol/L (136-145); UREA NITROGEN 11 mg/dL (7-18); eGFR NON AFRICAN AMERICAN > 90 mL/min (90-120)
[2019-02-09 14:04] LABS: ERYTHROCYTE SEDIMENTATION RATE 31 mm/hr (0-20)
== END | disposition home or self-care (01) ==
LOC: D.LAB 12:21
PROVIDERS: ATTEND Internal Medicine Gastroenterology
DX: K51.90 Ulcerative colitis, unspecified, without complications (principal)

== ENCOUNTER → 2020-12-14 15:35 | Outpatient (CLI) | payer MEDICAID ==
[2019-02-02 18:56] VITALS: BMI 22.2
[2020-12-14 16:13] LABS: BASOPHILS 0.7 % (0-2); EOSINOPHILS 2.6 % (0-7); HEMATOCRIT 33.7 % (36.0-48.0); HEMOGLOBIN 10.8 g/dL (12-16); LYMPHOCYTES 30.6 % (15-50); MCH 23.1 pg (26.0-34.0); MCHC 31.9 g/dL (31.0-37.0); MCV 72.3 fL (80.0-100.0); MEAN PLATELET VOLUME 5.8 fL (7.4-10.4); MONOCYTES 9.1 % (2-11); RBC 4.66 10x6/uL (4.00-5.40); RDW 18.4 % (11.5-14.5); WBC 7.7 10x3/uL (4.8-10.8)
[2020-12-14 16:15] LABS: PLATELET COUNT 632 10x3/uL (130-400)
[2020-12-14 16:30] LABS: ALKALINE PHOSPHATASE 98 U/L (30-120); ALT (SGPT) 12 U/L (10-68); BILIRUBIN - TOTAL 0.23 mg/dL (0.2-1.3); CALC OSMOLALITY 273 mosm/kg (275-300); CALCIUM 8.3 mg/dL (8.5-10.1); CHLORIDE - SERUM 103 mmol/L (98-107); CREATININE - SERUM 0.7 mg/dL (0.6-1.3); GLUCOSE 100 mg/dL (74-106); POTASSIUM - SERUM 3.6 mmol/L (3.5-5.1); PROTEIN - SERUM 7.1 g/dL (6.4-8.2); SODIUM 138 mmol/L (136-145); UREA NITROGEN 8 mg/dL (7-18); eGFR NON AFRICAN AMERICAN > 90 mL/min (90-120)
[2020-12-14 17:35] LABS: ERYTHROCYTE SEDIMENTATION RATE 36 mm/hr (0-20)
[2020-12-16 09:11] LABS: HEPATITIS C ANTIBODY <0.1 S/CO RAT (0.0-0.9)
== END | disposition home or self-care (01) ==
LOC: D.LAB 15:35
PROVIDERS: ATTEND Internal Medicine Gastroenterology
DX: K51.90 Ulcerative colitis, unspecified, without complications (principal)